=== PATIENT | female | born 1970 | race Asian ===

== ENCOUNTER 2025-01-17 11:56 | Emergency (ER) | payer OTHER ==
[~2025-01-17] VITALS: Ht 165.1 cm; Wt 51.8 kg
[2025-01-17] MEDS ORDERED: CEPH-570 PO (14:50)
[2025-01-17 15:16] VITALS: BP 113/67; TEMP 98.5; O2SAT 98
== END 2025-01-17 15:00 | disposition home or self-care (01) ==
LOC: ER 11:56
DX: I89.0 Lymphedema, not elsewhere classified (principal); Z90.12 Acquired absence of left breast and nipple; L03.90 Cellulitis, unspecified
CPT/HCPCS: 93971-TC

== ENCOUNTER 2025-02-12 11:15 | Emergency (ER) | payer OTHER ==
[~2025-02-12] VITALS: Ht 162.6 cm; Wt 54.4 kg
[~2025-02-12 11:15] MED LIST: CEPH-570 PO
[2025-02-12] MEDS ORDERED: KETOROLAC TROMETHAMINE 15 MG/ML VIAL ONE (11:59)
[2025-02-12] MEDS: KETOROLAC TROMETHAMINE 15 MG/ML VIAL IV ONE (12:15)
[2025-02-12] MEDS: IV NS 0.9% 1,000 ML BAG IV ONE (12:15)
[2025-02-12 12:19] LABS: BASOPHILS % (AUTO) 0.8 % (0.0-2.0); EOSINOPHILS % (AUTO) 0.3 % (0.0-6.0); HEMATOCRIT 37 % (33-45); HEMOGLOBIN 12.3 g/dL (11.5-14.8); LYMPHOCYTES % (AUTO) 29.3 % (20.0-44.0); MEAN CORPUSCULAR HEMOGLOBIN 31 PG (26.0-33.0); MEAN CORPUSCULAR HGB CONC 34 g/dl (31.0-36.0); MEAN CORPUSCULAR VOLUME 94 fL (82-100); MONOCYTES % (AUTO) 8.2 % (2.0-12.0); NEUTROPHILS % (AUTO) 61.4 % (43.0-81.0); PLATELET COUNT (AUTO) 214 K/uL (150-450); RED BLOOD CELL COUNT(AUTO) 3.93 MIL/uL (4.0-5.2); RED CELL DISTRIBUTION WIDTH 13.5 % (11.5-15.0); WHITE BLOOD COUNT (AUTO) 4.1 K/uL (4.3-11.0)
[2025-02-12 12:20] LABS: LYMPHOCYTES # (AUTO) 1.2 K/uL (0.8-4.8); MONOCYTES # (AUTO) 0.3 K/uL (0.1-1.30); NEUTROPHILS # (AUTO) 2.5 K/uL (1.8-8.9)
[2025-02-12 12:27] LABS: CALCIUM, SERUM 8.6 mg/dL (8.5-10.1); CREATININE 0.8 mg/dL (0.6-1.3); POTASSIUM 3.7 mmol/L (3.5-5.1)
[2025-02-12 12:32] LABS: ALBUMIN 3.3 g/dL (3.4-5.0); BILIRUBIN,DIRECT 0.1 mg/dL (0.0-0.2); BILIRUBIN,TOTAL 0.5 mg/dL (0.2-1.0)
[2025-02-12 13:46] LABS: APPEARANCE,URINE CLEAR (CLEAR); BILIRUBIN,URINE Negative (NEGATIVE); BLOOD, URINE Negative Ery/uL (NEGATIVE); COLOR,URINE YELLOW (YELLOW); KETONES,URINE Negative (NEGATIVE); LEUKOCYTE ESTERASE ,URINE Negative (NEGATIVE); PH,URINE 6.5 (5.0-8.0); PROTEIN,URINE Negative (NEGATIVE); UGLUCOSE Negative (NEGATIVE); UROBILINOGEN,URINE 0.2 EU/dL (0.2)
[2025-02-12 13:48] LABS: NITRITE, URINE NEGATIVE (NEGATIVE)
[2025-02-12] MEDS ORDERED: KETO10TA2 PO (13:54)
[2025-02-12 14:06] VITALS: BP 110/62; TEMP 98; O2SAT 98
== END 2025-02-12 14:06 | disposition home or self-care (01) ==
LOC: ER 11:18
DX: R10.9 Unspecified abdominal pain (principal); R30.0 Dysuria; Z85.3 Personal history of malignant neoplasm of breast; Z90.12 Acquired absence of left breast and nipple
CPT/HCPCS: 99285; 74176; 96374; 96361; 85025; 80048; 83690; 80076; 81003; 36415; J1885; J7030; A4223; 87086-TC